=== PATIENT | male | born 1960 | race Caucasian/White ===

== ENCOUNTER → 2017-05-29 | Outpatient (CLI) | payer BC ==
[~2017-05-29] MED LIST: OMNIPAQUE 350 MG/ML, 100ML BOTTLE ONE
== END | disposition home or self-care (01) ==
LOC: CFH 12:14
PROVIDERS: ATTEND Otolaryngology Facial Plastic Surgery
DX: H90.3 Sensorineural hearing loss, bilateral (principal); H93.A3 Pulsatile tinnitus, bilateral
CPT/HCPCS: 70496; Q9967

== ENCOUNTER → 2017-06-19 | Outpatient (CLI) | payer BC | END | disposition home or self-care (01) | LOC: CFH 09:58 | PROVIDERS: ATTEND Otolaryngology Facial Plastic Surgery | DX: H93.A2 Pulsatile tinnitus, left ear (principal); H91.90 Unspecified hearing loss, unspecified ear | CPT/HCPCS: 70544 ==

== ENCOUNTER → 2018-06-04 | Outpatient (CLI) | payer BC ==
[~2018-06-04] MED LIST changes: -OMNIPAQUE 350 MG/ML, 100ML BOTTLE ONE; +OMNIPAQUE 350 MG/ML, 150 ML BOTTLE ONE
== END | disposition home or self-care (01) ==
LOC: CVU 10:43
PROVIDERS: ATTEND Internal Medicine Cardiovascular Disease
DX: K22.10 Ulcer of esophagus without bleeding (principal); H93.12 Tinnitus, left ear; I10 Essential (primary) hypertension; E78.5 Hyperlipidemia, unspecified; Z90.49 Acquired absence of other specified parts of digestive tract
CPT/HCPCS: 74177; 93880; Q9967

== ENCOUNTER → 2019-01-21 | Outpatient (CLI) | payer BC | END | disposition home or self-care (01) | LOC: CVU 10:43 | PROVIDERS: ATTEND Internal Medicine Cardiovascular Disease | DX: I08.8 Other rheumatic multiple valve diseases (principal); I82.409 Acute embolism and thrombosis of unspecified deep veins of unspecified lower extremity; Z86.711 Personal history of pulmonary embolism | CPT/HCPCS: 0399T; 93306 ==